=== PATIENT | male | born 1960 | race Caucasian/White ===

== ENCOUNTER 2019-03-15 06:40 | Inpatient (IN) | payer MEDICARE, OTHER ==
[~2019-03-15] VITALS: Ht 185.4 cm; Wt 164.2 kg
[2019-03-15] VITALS (9 sets, daily range): BP systolic 139–165; BP diastolic 50–84; PULSE 68–97; TEMP 97.7–98.6
[~2019-03-15 06:40] MED LIST: ASPI325T6 PO; ASPIRIN E.C. 8181 MG PO; BENADRYL50 MG PO; COREG12.5 MG PO; FERROUS SU325 MG/TAB PO; FISH OIL1 IU PO; FISH OIL1000 MG PO; FOLIC ACID 40400 MCG PO; MILK OF MA400 MG/5 M PO; MVI; NIACIN 100100 MG/TAB PO; NIACIN1 POW; NORCO 325 MG-7.1 TAB PO; PEPCID 20MG TAB20 MG PO; PREDNISONE20 MG PO; PRILOSEC 20MG20 MG PO; PRINIVIL40 MG PO; ROXICODONE 55 MG/TAB PO; SENOKOT8.6 MG PO; SIMVASTATIN1 POW; TENORMIN 2525 MG/TAB PO; TENORMIN0.5 MG/ML IV; TENORMIN50 MG PO; THERAGRAN1 TA1 PO; TYLENOL 500MG500 MG PO; TYLENOL PM EXTR1 CAP PO; VITAMIN C BUFF500 MG PO; VITAMIN C500 MG PO; ZOCOR 40MG40 MG PO
[2019-03-15] MEDS ORDERED: TENORMIN100 MG PO (07:47)
[2019-03-15] MEDS ORDERED: FLOMAX 0.40.4 MG/CAP PO (07:48)
[2019-03-15] MEDS ORDERED: MOBIC15 MG PO (07:48)
[2019-03-15] MEDS ORDERED: PROSCAR 5MG5 MG PO (07:49)
--- NOTE | 2019-03-15 13:15 | NUR ---
PATIENT BACK IN ROOM 331 POST OP LEFT KNEE EXP. WITH POLY EXCHANGE. VSS. NO C/O PAIN. LK DRESSING IS CD&I WITH AQUACEL AND CRYOCUFF INPLACE. TEDS & SCD'S TO BLE. POSITIVE PEDAL PULSES TO BLE. FRANCO TO DEPENDENT DRAINAGE WITH SMALL AMOUNTS OF CLEAR YELLOW URINE NOTED. IV FLUIDS INFUSING INTO LEFT AC VIA PUMP. NO C/O N/V. LIQUIDS AT BEDSIDE. HEAD TO TOE ASSESSMENT WNL. NO OTHER NEEDS. CALL LIGHT IN REACH.
--- NOTE | 2019-03-15 14:09 | NUR ---
Company Driver met with patient, patients daughter Jazmín (ph#[phone]), and patient's brother Elliot (ph#[phone]). Patient states his , Edyta three years ago. Patient lives in [place] with his daughter Jazmín. Patient sees Dr. Santoro in [place] for Primary Care and obtains his medications from [facility] with no issue. Patient reports independence with ADLS and has a cane, crutches, and a power scooter at home if he needs them. Patient does not have Advance Directives in place but was interested in taking home the form. SW provided. No additional concerns at this time.
[2019-03-16] VITALS: BP 158/63; PULSE 82; TEMP 97.6
--- NOTE | 2019-03-16 01:03 | NUR ---
Patient states he is having troubles sleeping, but this is common for him. Dressing to left knee changed d/t saturation. Patient ambulated around the whole surgical nurses desk. Tolerated this well. Currently back in bed with cryocuff on, bed alarm on, and resting. Will continue to monitor.
[2019-03-16 04:44] VITALS: BP 166/65; PULSE 81; TEMP 98.2
[2019-03-16 07:09] VITALS: BP 150/61; PULSE 84; TEMP 98.1
[2019-03-16] MEDS ORDERED: ASPI325T6 PO (07:33)
[2019-03-16] MEDS ORDERED: NORCO 325 MG-7.1 TAB PO (07:33)
[2019-03-16] MEDS ORDERED: ROXICODONE 55 MG/TAB PO (07:34)
[2019-03-16 07:41] LABS: HEMATOCRIT 42.5 % (42.0-52.0); HEMOGLOBIN 14.5 g/dl (13.5-18.0)
--- NOTE | 2019-03-16 09:11 | NUR ---
Assessment done. No concerns at this time. Scant drainage noted to aquacel dressing. Dressing to be changed if drainage reaches both lateral borders of gauze. PRN [place] given prior to therapy per request. VSS.
--- NOTE | 2019-03-16 10:00 | NUR ---
Initial visit; Patient thanked General Utility Machine Operator for looking in on him and offering God's blessings.
[2019-03-16 12:40] VITALS: BP 144/66; PULSE 81; TEMP 98.3
--- NOTE | 2019-03-16 12:59 | NUR ---
Assessment completed with no concerns. Patient continues to ambulate well with crutches. Urine output good.
--- NOTE | 2019-03-16 13:20 | NUR ---
Primary nurse Ameena RN to resume care at 1345. Patient denies pain at this time. Aquacel to left knee intact. Small spot of drainage noted to distal end of padded portion. No warmth or tenderness noted on palpation. No concerns for the dressing at this time.
--- NOTE | 2019-03-16 15:40 | NUR ---
PATIENT DISCHARGING HOME VIA WHEELCHAIR TO PERSONAL VEHICLE WITH DAUGHTER. GAVE DISCHARGE INSTRUCTIONS, PRESCRIPTIONS, AQUACEL & FOLLOW UP APT. ANSWERED ALL QUESTIONS/CONCERNS. STUDENT NURSE ARTURO'Uriah IV. SENT HOME PERSONAL BELONGINGS. PATIENT DISCHARGED.
== END 2019-03-16 15:40 | disposition home or self-care (01) | DRG 489 ==
LOC: SDCO 06:40 → JCC 06:41 → SDCO 11:15 → JCC 17:45 → EDSTATUS 17:45 → JCC 03-16 15:40
PROVIDERS: ADMIT Orthopaedic Surgery
PROC: 0SBD0ZZ Excision of Left Knee Joint, Open Approach (ICD-10-PCS; 2019-03-15)
PROC: 0SUW09Z Supplement Left Knee Joint, Tibial Surface with Liner, Open Approach (ICD-10-PCS; 2019-03-15)
PROC: 0SPD09Z Removal of Liner from Left Knee Joint, Open Approach (ICD-10-PCS; principal; 2019-03-15 11:15)
DX: T84.013A Broken internal left knee prosthesis, initial encounter (principal); I10 Essential (primary) hypertension; Y83.9 Surgical procedure, unspecified as the cause of abnormal reaction of the patient, or of later complication, without mention of misadventure at the time of the procedure; J30.2 Other seasonal allergic rhinitis; M48.00 Spinal stenosis, site unspecified; Z79.82 Long term (current) use of aspirin; Z79.891 Long term (current) use of opiate analgesic; Z87.891 Personal history of nicotine dependence
CPT/HCPCS: A4314; A9284; C1776; J0690; J2250; J2704; J3010; J7120

== ENCOUNTER 2021-04-21 08:01 | Inpatient (IN) | payer MEDICARE, OTHER ==
[~2021-04-21] VITALS: Ht 188 cm; Wt 160.5 kg
[2021-04-21] VITALS (26 sets, daily range): BP systolic 139–158; BP diastolic 49–97; PULSE 70–79; TEMP 97.7–99.5; O2SAT 96–98
[~2021-04-21 08:01] MED LIST changes: +FLOMAX 0.40.4 MG/CAP PO; +MOBIC15 MG PO; +PROSCAR 5MG5 MG PO; +TENORMIN100 MG PO
[2021-04-21] MEDS ORDERED: XARELTO20 MG PO (09:10)
[2021-04-21] MEDS ORDERED: NORVASC 5MG5 MG/TAB PO (09:11)
[2021-04-21] MEDS ORDERED: TYLENOL PM EXTR1 TA1 PO (09:12)
[2021-04-21] MEDS ORDERED: PRIL40 PO (09:12)
[2021-04-21] MEDS ORDERED: TYLENOL 8 HR PO (09:14)
[2021-04-21] MEDS ORDERED: OMEGA-3 1000 MG1 CAP PO (09:15)
--- NOTE | 2021-04-21 09:27 | NUR ---
Discussed plan of care with ROSEANNE Hernández. BP systolic running 180's-190's. Ok to give initial sotolol dose and norvasc.
--- NOTE | 2021-04-21 09:34 | NUR ---
Software Clerk met with patient to discuss discharge planning. Patient lives in [place] with his daughter, Jazmín (ph#[phone]) although patient remarks that Jazmín isn't home that much. Patient sees Dr. Santoro for primary care and obtains medications from [facility]. Patient was having difficulty affording his prescribed blood thinners, Xarelto and Eloquis even with coupons that were provided to him. Patient states he will be switched to Warfarin after he runs out of Eloquis. Patient has no difficulty affording other medications. Patient does not normally use any DME but has a cane, walker and crutches from previous surgeries. Patient is independent with ADLS and plans to return home upon discharge. Patient believes he has DPOA-HC that designates his sister in law, Maricruz Fox. Discharge Plan: Home
[2021-04-21 10:52] LABS: BASO % 0.4 % (0.0-2.0); EOS # 0.1 K/mm3 (0.0-0.7); EOS % 1.6 % (0-4.0); GRAN # 4.8 K/mm3 (1.4-6.5); GRAN % 64.4 % (42.2-75.2); HEMATOCRIT 44.9 % (42.0-52.0); HEMOGLOBIN 15.8 g/dl (13.5-18.0); LYMPH # 1.9 K/mm3 (1.2-3.4); LYMPH % 24.9 % (20.0-51.0); MEAN CELL VOLUME 89 fl (80.0-100.0); MEAN CORPUSCULAR HEMOGLOBIN 31 pg (27.0-31.0); MEAN CORPUSCULAR HGB CONC 35 g/dl (33.0-37.0); MEAN PLATELET VOLUME 8.3 fl (7.4-10.4); MONO # 0.6 K/mm3 (0.1-0.6); MONO % 8.3 % (1.7-9.3); PLATELET COUNT 208 K/mm3 (130-400); RED BLOOD COUNT 5.06 M/mm3 (4.20-5.60); REDCELL DISTRIBUTION WIDTH-CV 12.5 % (11.5-14.5)
[2021-04-21 11:03] LABS: INR 1.7 (0.8-3.0); PROTHROMBIN TIME 18.8 SECONDS (9.7-12.8)
[2021-04-21 11:17] LABS: ALBUMIN 3.9 gm/dL (3.4-4.8); BILIRUBIN,TOTAL 0.7 mg/dL (0.2-1.2); CALCIUM 8.9 mg/dL (8.4-10.2); CREATININE, serum 0.9 mg/dL (0.72-1.25); MAGNESIUM 1.9 mg/dL (1.6-2.6); POTASSIUM 4.1 mmol/L (3.5-4.5); TOTAL PROTEIN 7.4 gm/dL (6.2-8.1)
[2021-04-21 11:33] LABS: THYROID STIMULATING HORMONE 0.946 uIU/mL (0.350-4.940)
[2021-04-21 13:06] LABS: BILIRUBIN,DIRECT 0.2 mg/dL (0.0-0.5)
--- NOTE | 2021-04-21 19:50 | NUR ---
Report called to medical floor RN. Patient stable at this time.
--- NOTE | 2021-04-21 21:44 | NUR ---
Patient arrived to medical floor from ICU around 2009. Assessed. Alert and oriented x 4, and able to make needs known. Denies having pain and discomfort, except for headache. Reports APAP did help some. Given PRN Benadryl as requested to help him sleep. Voices no further questions, needs, or concerns at this time. In bed with call light within reach.
[2021-04-22 04:17] VITALS: BP 137/73; PULSE 65; TEMP 97.6
--- NOTE | 2021-04-22 05:12 | NUR ---
Patient has been in bed with call light within reach. Denies having any questions, needs, or concerns at this time.
[2021-04-22 06:56] LABS: INR 1.3 (0.8-3.0); PROTHROMBIN TIME 14.7 SECONDS (9.7-12.8)
[2021-04-22 07:53] LABS: BASO % 0.4 % (0.0-2.0); EOS # 0.1 K/mm3 (0.0-0.7); EOS % 1.6 % (0-4.0); GRAN # 3.9 K/mm3 (1.4-6.5); GRAN % 57.4 % (42.2-75.2); HEMATOCRIT 45.3 % (42.0-52.0); HEMOGLOBIN 15.3 g/dl (13.5-18.0); LYMPH # 2.1 K/mm3 (1.2-3.4); LYMPH % 31.3 % (20.0-51.0); MEAN CELL VOLUME 92 fl (80.0-100.0); MEAN CORPUSCULAR HEMOGLOBIN 31 pg (27.0-31.0); MEAN CORPUSCULAR HGB CONC 34 g/dl (33.0-37.0); MEAN PLATELET VOLUME 8.9 fl (7.4-10.4); MONO # 0.6 K/mm3 (0.1-0.6); MONO % 8.9 % (1.7-9.3); PLATELET COUNT 210 K/mm3 (130-400); RED BLOOD COUNT 4.92 M/mm3 (4.20-5.60); REDCELL DISTRIBUTION WIDTH-CV 12.6 % (11.5-14.5)
[2021-04-22 07:56] VITALS: BP 145/80; PULSE 73; TEMP 99.3
[2021-04-22 07:58] LABS: CALCIUM 8.7 mg/dL (8.4-10.2); CREATININE, serum 0.87 mg/dL (0.72-1.25); MAGNESIUM 1.9 mg/dL (1.6-2.6); POTASSIUM 4.1 mmol/L (3.5-4.5)
--- NOTE | 2021-04-22 09:00 | NUR ---
PT ALERT AND ORIENTED. PT HAS DIMINISHED LUNG SOUNDS IN BASES BILATERALLY, CLEAR UPPER LUNGS. PT HAS HEADACHE, MANAGED WITH TYLENOL PRN PER ORDERS. PT HAS EDEMA IN BILATERAL LOWER EXTREMITIES, 1+ PITTING. PT RIGHT TOES ARE RED, BLANCHABLE. IS INDEPENDENT IN ROOM, CALL LIGHT WITHIN REACH.
[2021-04-22 09:26] VITALS: TEMP 98.3
--- NOTE | 2021-04-22 09:26 | NUR ---
PT ELEVATED TEMP. PT STATES WAS EATING BREAKFAST, RETAKEN AT THIS TIME, 98.3.
--- NOTE | 2021-04-22 09:29 | NUR ---
Initial visit; Patient thanked Sample Coordinator for looking in on him and offering encouragement and God's blessings. Patient thanked Sample Coordinator for stopping and wished her well.
[2021-04-22 11:38] VITALS: BP 128/56; PULSE 72; TEMP 98.6
[2021-04-22 15:32] VITALS: BP 146/74; PULSE 78; TEMP 98.9
[2021-04-22 19:50] VITALS: BP 153/88; PULSE 82; TEMP 97.5
--- NOTE | 2021-04-22 20:12 | NUR ---
Pt continuing on plan of care. Pt independent in room. Pt headache managed with tylenol prn per orders. Pt able to call for needs. Pt had procedure completed today, dressing remained clean, dry, intact this shift. No significatn changes noted in pt this shift. Report given to living nurse.
--- NOTE | 2021-04-22 21:15 | NUR ---
ASSESSMENT COMPLETE. PT COOPERATIVE WITH CARES. PT RESTING IN BED WITH HIS EYES CLOSED. PT STATES HE HAS A HEADACHE THAT HE RATES AT A 2. PT DIDN'T FEEL LIKE HE NEEDED ANYTHING FOR HIS HEADACHE. PT DENIES PALPITATIONS, SOB OR DIZZINESS. PT STATES HE HAS NO OTHER NEEDS AT THIS TIME. CALL LIGHT WITHIN REACH.
[2021-04-23 00:43] VITALS: BP 109/61; PULSE 78; TEMP 97.9
[2021-04-23 04:56] VITALS: BP 132/76; PULSE 67; TEMP 97.9
--- NOTE | 2021-04-23 06:26 | NUR ---
PT RESTING IN RECLINER. PT GIVEN TYLENOL FOR HEADACHE. PT HAD AN OTHERWISE UNEVENTFUL NIGHT. PT DENIES PALPITATIONS, SOB OR DIZZINESS. PT STATES HE HAS NO OTHER NEEDS AT THIS TIME. CALL LIGHT WITHIN REACH.
[2021-04-23 06:42] LABS: BASO % 0.4 % (0.0-2.0); EOS # 0.1 K/mm3 (0.0-0.7); EOS % 1.5 % (0-4.0); GRAN # 4.5 K/mm3 (1.4-6.5); GRAN % 62.3 % (42.2-75.2); HEMATOCRIT 46.4 % (42.0-52.0); LYMPH % 27.3 % (20.0-51.0); MEAN CELL VOLUME 91 fl (80.0-100.0); MEAN CORPUSCULAR HEMOGLOBIN 31 pg (27.0-31.0); MEAN CORPUSCULAR HGB CONC 35 g/dl (33.0-37.0); MEAN PLATELET VOLUME 8.6 fl (7.4-10.4); MONO # 0.6 K/mm3 (0.1-0.6); MONO % 8.2 % (1.7-9.3); PLATELET COUNT 246 K/mm3 (130-400); REDCELL DISTRIBUTION WIDTH-CV 12.4 % (11.5-14.5)
[2021-04-23 06:54] LABS: INR 1.3 (0.8-3.0); PROTHROMBIN TIME 14.3 SECONDS (9.7-12.8)
[2021-04-23 07:23] LABS: CALCIUM 9.4 mg/dL (8.4-10.2); CREATININE, serum 1.02 mg/dL (0.72-1.25); MAGNESIUM 1.8 mg/dL (1.6-2.6); POTASSIUM 4.2 mmol/L (3.5-4.5)
[2021-04-23 08:26] VITALS: BP 142/78; PULSE 76; TEMP 98.5
[2021-04-23] MEDS ORDERED: COUMADIN 5MG5 MG/TAB PO (10:22)
[2021-04-23] MEDS ORDERED: CEPHALEXIN500 M1 PO (10:22)
[2021-04-23] MEDS ORDERED: BETAPACE 80MG80 MG PO (10:23)
[2021-04-23 11:28] VITALS: BP 124/71; PULSE 74; TEMP 98.1
--- NOTE | 2021-04-23 12:27 | NUR ---
PT MET CRITERIA FOR DISCHARGE, VSS. IV REMOVED WITH NO COMPLICATIONS, CATHETER INTACT. PT DENIES SOB OR CHEST PAIN. DISCHARGE INSTRUCTIONS REVIEWED, PT VERBALIZED UNDERSTANDING, PT AWARE OF F/U APPT AND PRESCRIPTIONS TO ELECTION ASSISTANT. PT DC TO HOME VIA AMBULATORY ACCOMPANIED BY THIS NURSE.
== END 2021-04-23 12:00 | disposition home or self-care (01) | DRG 262 ==
LOC: MEDICAL 08:01 → ICU 08:01 → MEDICAL 20:07
PROVIDERS: ADMIT Internal Medicine Cardiovascular Disease
PROC: 0JH632Z Insertion of Monitoring Device into Chest Subcutaneous Tissue and Fascia, Percutaneous Approach (ICD-10-PCS; principal; 2021-04-21)
DX: I48.0 Paroxysmal atrial fibrillation (principal); I10 Essential (primary) hypertension; E78.5 Hyperlipidemia, unspecified; K21.9 Gastro-esophageal reflux disease without esophagitis; E11.9 Type 2 diabetes mellitus without complications
CPT/HCPCS: C1764